=== PATIENT | male | born 1980 | race Caucasian/White ===

== ENCOUNTER 2022-03-07 01:49 | Emergency (ER) | payer OTHER ==
[2022-03-07 02:56] LABS: ALBUMIN 4.2 g/dL (3.4-5.0); BILIRUBIN - TOTAL 0.3 mg/dL (0.2-1.0); BUN/CREAT RATIO (CALC) 11.8 RATIO; CREATININE 0.93 mg/dL (0.67-1.17); GLOBULIN (CALCULATION) 3.8 g/dL; MAGNESIUM 1.9 mg/dL (1.8-2.4); POTASSIUM 3.3 mmol/L (3.5-5.1)
[2022-03-07 03:00] LABS: BASOPHIL 0.5 % (0-2); EOSINOPHIL 2.4 % (0-5); HCT 49.7 % (42.0-52.0); HGB 17.5 g/dl (13.2-18.0); LYMPHOCYTE 17.4 % (15-48); MCH 31.4 pg (25.0-31.0); MCHC 35.2 g/dL (32.0-36.0); MCV 89.2 fL (78.0-100.0); MONOCYTE 5.7 % (0-12); MPV 8.4 fL (6.0-9.5); NEUTROPHIL 73.5 % (41-80); NRBC 0; PLT 325 K/uL (150-400); RBC 5.57 M/uL (4.70-6.00); RDW 12.4 % (11.5-14.0); WBC 17.3 K/uL (4.0-10.5)
[2022-03-07 03:15] LABS: CORONAVIRUS 2019 SARS-COV-2 NEGATIVE (NEGATIVE); INFLUENZA A NAA NEGATIVE (NEGATIVE)
== END 2022-03-07 09:47 | disposition other institution (70) ==
LOC: FER 01:49
PROVIDERS: Internal Medicine
DX: I21.4 Non-ST elevation (NSTEMI) myocardial infarction (principal); F17.210 Nicotine dependence, cigarettes, uncomplicated; Z20.822 Contact with and (suspected) exposure to COVID-19; Z28.311 Partially vaccinated for COVID-19
CPT/HCPCS: 36415; 71045; 80053; 83690; 83735; 84145; 84484; 85025; 85730; 93005; J1644; U0002